=== PATIENT | male | born 1935 | race African-American/Black ===

== ENCOUNTER → 2020-09-01 | Outpatient (CLI) | payer MEDICAID, MEDICARE ==
[2020-08-03 15:00] VITALS: BP 122/89
[~2020-09-01] MED LIST: ALLO300T PO; APIX2.5T PO; ASCO500C PO; ASPI81TA50 PO; ATOR20TA58 PO; CARV3.1210 PO; FERR240T2 PO; FERR325T14 PO; FURO20TA3 PO; ISOS30TA68 PO; NITR0.4T22 SL; OMEP40CA45 PO; POTA10TA12 PO; QUET50TA5 PO; SPIR25TA5 PO; TRAZ-118 PO
--- NOTE | 2020-09-01 17:44 | CARD ---
MR#: [id number] Date of Study: 09/01/2020 Ordering Physician: BASSAM OSMAN, Referring Physician: BASSAM OSMAN, Tech: Lu Zhang [facility] APPROVED REPORT EXAM: Two-dimensional and M-mode echocardiogram with Doppler and color Doppler. Other Information Quality : AverageHR: 88bpm Rhythm : NSRTechnically limited study due to body habitus. INDICATION CAD RISK FACTORS Hypertension 2D DIMENSIONS Left Atrium(2D)4.7 (1.6-4.0cm)IVSd2.4 (0.7-1.1cm) Aortic Root(2D)3.7 (2.0-3.7cm)LVDd3.7 (3.9-5.9cm) LVOT Diameter2.1 (1.8-2.4cm)PWd1.4 (0.7-1.1cm) LVDs2.0 (2.5-4.0cm)FS (%) 45.1 % SV45.2 mlLVEF(%)77.2 (>50%) Aortic Valve AoV Peak Jem.168.0cm/sAoV VTI27.6cm AO Peak GR.11.3mmHgAO Mean GR.6mmHg Pulmonary Valve PV Peak Ooostkbj957.7cm/s Tricuspid Valve TR P. Sirdlqbe681vh/sTR Peak Gr.40mmHg LEFT VENTRICLE The left ventricle is normal size. There is mild to moderate concentric left ventricular hypertrophy. The left ventricular systolic function is normal and the ejection fraction is within normal range. E stimated ejection fraction 60-65%. Septal motion suggestive of prior sternotomy. Grossly normal wall motion. Tissue Doppler imaging reveals moderate left ventricular diastolic dysfunction. No left ventr icle thrombus noted on this study. RIGHT VENTRICLE The right ventricle is normal size. There is normal right ventricular wall thickness. The right ventr icular systolic function is normal. ATRIA The left atrium is mildly dilated. The right atrium is mildly dilated. The interatrial septum is inta ct with no evidence for an atrial septal defect or patent foramen ovale as noted on 2-D or Doppler im aging. AORTIC VALVE The aortic valve is mildly thickened but opens well. Doppler and Color Flow revealed at least moderat e aortic regurgitation. There is no significant aortic valvular stenosis. MITRAL VALVE The mitral valve is thickened but opens well. There is no evidence of mitral valve prolapse. There is no mitral valve stenosis. Doppler and Color-flow revealed mild mitral regurgitation. TRICUSPID VALVE The tricuspid valve is normal in structure and function. Doppler and Color Flow revealed mild regurgi tation. RVSP 40 mm Hg There is no tricuspid valve prolapse or vegetation. There is no tricuspid valve stenosis. PULMONIC VALVE Not well visualized. GREAT VESSELS The aortic root is mildly enlarged. IVC is not well visualized. PERICARDIAL EFFUSION There is no evidence of significant pericardial effusion. Critical Notification Critical Value: No <Conclusion> The left ventricular systolic function is normal and the ejection fraction is within normal range. E stimated ejection fraction 60-65%. Septal motion suggestive of prior sternotomy. Grossly normal wall motion. Tissue Doppler imaging reveals moderate left ventricular diastolic dysfunction. Doppler and Color Flow revealed at least moderate aortic regurgitation. Doppler and Color Flow revealed mild regurgitation. RVSP 40 mm Hg Signed by : Bassam Osman, Electronically Approved : 09/01/2020 17:44:05
== END ==
LOC: ECHO 14:49
PROVIDERS: ATTEND Internal Medicine Cardiovascular Disease
DX: I08.3 Combined rheumatic disorders of mitral, aortic and tricuspid valves (principal); I25.10 Atherosclerotic heart disease of native coronary artery without angina pectoris
CPT/HCPCS: 93306